=== PATIENT | male | born 1950 | race Caucasian/White ===

== ENCOUNTER 2022-07-04 16:26 | Outpatient (CLI) | payer OTHER, SELFPAY ==
--- NOTE | ~2022-07-04 | CT_ITS ---
EXAMINATION: MR cervical spine wo con, CT cervical spine wo con DATE: 07/04/2022 17:29 INDICATION: Status post cervical spinal fusion with difficulty walking. TECHNIQUE: 1. Magnetic resonance imaging (MRI) of the cervical spine was performed without intravenous contrast. Sequences included sagittal T2-weighted FSE, sagittal T2-weighted FS FSE, sagittal T1-weighted FSE, axial MERGE and axial T2-weighted FSE. 2. CT of the cervical spine was performed without intravenous contrast. Sagittal and coronal reconstr uctions were performed. Automated exposure control and iterative reconstruction technique were employ ed. The dose-length product was 475.1 mGy-cm. COMPARISON: None FINDINGS: 13 degree cervical levocurvature. Anterior spinal fusion at C3-C4 with anterior plate and screw fixat ion without evident osseous bridging across the disc space on the CT images. There is 2 mm retrolisth esis of C3 on C4. C5-C6 laminectomies with C5-C6 posterior spinal fusion with across length bilateral vertical deana and lateral mass screw fixation. There is some solid osseous fusion across the bilatera l facet joints. There is moderate to severe disc height loss at C5-C6 and anterior fusion without int ernal fixation with solid osseous bridging across the bilateral C5-C6 uncovertebral joints. Vertebra l body heights are normal. No fractures. Bone marrow signal intensity is normal. There is mild disc h eight loss at C2-C3 and C6-C7 through T2-T3. Moderate to severe disc height loss at C5-C6. There is focal mild increased cord signal on the sagittal images at the level of C5-C6 however this occurs at the same level of the hand of magnetic field artifact from the posterior instrumentation in this is m ost likely artifactual although given the posterior decompression at this level could not exclude sma ll region of myelomalacia related to prior stenosis. There is no expansion of the cord at this level to suggest neoplasm or an acute inflammatory process. Cord signal is otherwise unremarkable. The visu alized cervical soft tissues and apices of lungs are unremarkable. The following disc levels are spec ifically discussed: C2-C3: Disc is minimally bulging. There is mild right uncovertebral joint osteoarthritis. There is mi ld bilateral facet joint osteoarthritis. There is no neural foraminal stenosis. There is no central c anal stenosis. C3-C4: Anterior fusion procedure with the most remarkable small ossicles along the posterior margin o f the still unfused disc space which slightly indent the anterior aspect of the thecal sac. There is severe bilateral uncovertebral joint osteoarthritis. There is mild bilateral facet joint osteoarthrit is. There is moderate left and mild to moderate right neural foraminal stenosis. There is mild centra l canal stenosis with central canal measuring 8-9 mm AP in the mid sagittal plane. C4-C5: Disc is bulging. There is mild bilateral uncovertebral joint osteoarthritis. There is mild lef t and and moderate to severe right facet joint osteoarthritis. There is moderate right and mild left neural foraminal stenosis. There is mild central canal stenosis. C5-C6: Disc is bulging. There is fusion across the bilateral facet and uncovertebral joints. There is moderate left and mild right neural foraminal stenosis. Posterior decompression with no central sherrie l stenosis. C6-C7: Disc is bulging. There is mild bilateral uncovertebral joint osteoarthritis. There is mild lef t and moderate right facet joint osteoarthritis. There is mild bilateral neural foraminal stenosis. T here is mild central canal stenosis. C7-T1: The disc does not extend beyond the endplate margin. There is mild bilateral uncovertebral agnieszka nt osteoarthritis. There is mild left and severe right facet joint osteoarthritis. There is mild righ t neural foraminal stenosis. There is no central canal stenosis. IMPRESSION: 1. Moderate to
== END 2022-07-04 16:27 | disposition home or self-care (01) ==
PROVIDERS: PCP Student in an Organized Health Care Education/Training Program; Visit Provider Neurological Surgery
DX: Z98.1 Arthrodesis status (principal); M47.812 Spondylosis without myelopathy or radiculopathy, cervical region
CPT/HCPCS: 72125; 72141

== ENCOUNTER 2022-08-08 08:54 | Outpatient (CLI) | payer OTHER, SELFPAY ==
--- NOTE | 2022-08-08 11:00 | NEURO_ITS ---
Impression: Patient reports a history of gait instability. # Bilateral tibial motor nerve conduction study limited due to technical challenges secondary to sustained toe extension. Rest of nerve conduction study was normal. 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 This can be seen in the setting of right L5/S1 radiculopathy. Please note, paraspinal muscles were not examined. # Clinical correlation recommended. Nerve Conduction Studies Anti Sensory Summary Table Stim Site NR Peak (ms) P-T Amp (?V) Site1 Site2 Delta-P (ms) Dist (cm) Rivas (m/s) Left Sup Fibular Anti Sensory (Ant Lat Mall) 14 cm 3.6 30.6 14 cm Ant Lat Mall 3.6 16.0 44 Right Sup Fibular Anti Sensory (Ant Lat Mall) 14 cm 3.4 21.9 14 cm Ant Lat Mall 3.4 16.0 47 Left Sural Anti Sensory (Lat Mall) Calf 3.9 6.1 Calf Lat Mall 3.9 16.0 41 Right Sural Anti Sensory (Lat Mall) Calf 3.3 50.2 Calf Lat Mall 3.3 16.0 48 Motor Summary Table Stim Site NR Onset (ms) O-P Amp (mV) Site1 Site2 Delta-0 (ms) Dist (cm) Rivas (m/s) Left Peroneal Motor (Vastus Med) Ankle 4.0 4.5 Popit Ankle 9.0 42.0 47 Popit 13.0 3.0 B Fib Ankle 7.1 32.0 45 B Fib 11.1 3.4 Right Peroneal Motor (Vastus Med) Ankle 3.7 4.7 Popit Ankle 9.7 43.0 44 Popit 13.4 4.9 B Fib Ankle 7.2 32.0 44 B Fib 10.9 5.3 Left Tibial Motor (Abd Whitehead Brev) Ankle 4.0 0.9 Knee Ankle 10.1 42.0 42 Knee 14.1 1.1 Right Tibial Motor (Abd Whitehead Brev) Ankle 4.1 0.1 Knee Ankle 8.8 39.0 44 Knee 12.9 0.4 F Wave Studies NR F-Lat (ms) L-R F-Lat (ms) Left Peroneal (Mrkrs) (EDB) 54.27 0.79 Right Peroneal (Mrkrs) (EDB) 53.48 0.79 Left Tibial (Mrkrs) (Abd Hallucis) 54.27 1.05 Right Tibial (Mrkrs) (Abd Hallucis) 53.22 1.05 EMG Side Muscle Nerve Root Ins Act Fibs Amp Dur Recrt Comment Right AntTibialis Dp Br Fibular L4-5 Nml Nml Nml Nml Nml Right Gastroc Tibial S1-2 Nml Nml Nml Nml Nml Right Fibularis Long Sup Br Fibular L5-S1 Nml Nml Nml Nml Reduced Right Flex Dig Long Tibial L5-S2 Nml Nml Nml Nml Reduced Right Ext Dig Brev Dp Br Fibular L5, S1 Nml Nml Nml Nml Nml Left AntTibialis Dp Br Fibular L4-5 Nml Nml Nml Nml Nml Left Gastroc Tibial S1-2 Nml Nml Nml Nml Nml Left Fibularis Long Sup Br Fibular L5-S1 Nml Nml Nml Nml Nml Left Flex Dig Long Tibial L5-S2 Nml Nml Nml Nml Nml Left Ext Dig Brev Dp Br Fibular L5, S1 Nml Nml Nml Nml Nml MTDD
== END 2022-08-08 08:55 | disposition home or self-care (01) ==
LOC: ANHNEURO 08:55
PROVIDERS: PCP Student in an Organized Health Care Education/Training Program; Visit Provider Neurological Surgery
DX: Z98.1 Arthrodesis status (principal); R26.89 Other abnormalities of gait and mobility; R94.131 Abnormal electromyogram [EMG]
CPT/HCPCS: 95886; 95910